=== PATIENT | male | born 1955 | race Caucasian/White ===

== ENCOUNTER 2019-11-25 08:02 | Outpatient (CLI) | payer MEDICARE, SELFPAY ==
[2019-11-25 09:40] LABS: Hemoglobin A1C 8.7 % (<5.7)
[2019-11-25 09:52] LABS: Creatinine Urine 86.3 mg/dL
[2019-11-25 09:57] LABS: MALB Creatinine Ratio 7.5 mg/g (0-30); Microalbumin Urine Random 6.5 mg/L (0-16.7)
== END 2019-11-25 08:03 | disposition home or self-care (01) ==
PROVIDERS: PCP Internal Medicine
DX: E78.5 Hyperlipidemia, unspecified (principal); E11.65 Type 2 diabetes mellitus with hyperglycemia
CPT/HCPCS: 36415; 82043; 83036

== ENCOUNTER 2019-11-26 07:39 | Outpatient (CLI) | payer MEDICARE, SELFPAY ==
[2019-11-26 09:18] LABS: Alanine Aminotransferase 39 U/L (4-50); Albumin Level 4.3 g/dL (3.5-5.1); Alkaline Phosphatase 61 U/L (38-126); Aspartate Amino Transferase 30 U/L (17-59); Bilirubin,Total 0.7 mg/dL (0.2-1.3); Blood Urea Nitrogen 15 mg/dL (9-20); Calcium 9.6 mg/dL (8.4-10.2); Carbon Dioxide 27 mmol/L (22-30); Chloride 103 mmol/L (98-107); Cholesterol 142 mg/dL (0-200); Estimated Glomerular Filt Rate > 60; Glucose 172 mg/dL (75-110); HDL Direct 45 mg/dL; Potassium 4.3 mmol/L (3.4-5.0); Sodium 137 mmol/L (137-145); Triglycerides 79 mg/dL (<150)
[2019-11-26 09:32] LABS: LDL Cholesterol Direct 71 mg/dL
== END 2019-11-26 07:40 | disposition home or self-care (01) ==
LOC: ANHLAB 07:42
PROVIDERS: PCP Internal Medicine; Visit Provider Internal Medicine Endocrinology, Diabetes & Metabolism
DX: E11.65 Type 2 diabetes mellitus with hyperglycemia (principal); E78.5 Hyperlipidemia, unspecified
CPT/HCPCS: 36415; 80053; 80061

== ENCOUNTER 2021-04-12 08:52 | Outpatient (CLI) | payer MEDICARE, SELFPAY ==
--- NOTE | 2021-04-12 11:00 | NEURO_ITS ---
Impression: # Complains of numbness of hands. # Bilateral Carpal Tunnel Syndrome, right more than left. 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 # Abnormal needle/EMG exam. Nerve Conduction Studies Anti Sensory Summary Table Stim Site NR Peak (ms) P-T Amp (?V) Site1 Site2 Delta-P (ms) Dist (cm) Damon (m/s) Left Median Anti Sensory (2-3nd Digit) Wrist 4.2 16.7 Wrist 2-3nd Digit 4.2 14.0 33 Wrist 4.3 9.1 Wrist 2-3nd Digit 4.2 14.0 33 Right Median Anti Sensory (2-3nd Digit) Wrist 5.3 7.9 Wrist 2-3nd Digit 5.3 14.0 26 Wrist 5.8 15.9 Wrist 2-3nd Digit 5.3 14.0 26 Left Radial Anti Sensory (Base 1st Digit) Wrist 2.4 5.5 Wrist Base 1st Digit 2.4 0.0 Right Radial Anti Sensory (Base 1st Digit) Wrist 2.9 26.5 Wrist Base 1st Digit 2.9 0.0 Left Ulnar Anti Sensory (5th Digit) Wrist 2.9 12.2 Wrist 5th Digit 2.9 14.0 48 Right Ulnar Anti Sensory (5th Digit) Wrist 3.2 9.7 Wrist 5th Digit 3.2 14.0 44 Motor Summary Table Stim Site NR Onset (ms) O-P Amp (mV) Site1 Site2 Delta-0 (ms) Dist (cm) Damon (m/s) Left Median Motor (Abd Poll Brev) Wrist 4.3 4.8 Elbow Wrist 5.2 29.0 56 Elbow 9.5 4.2 Right Median Motor (Abd Poll Brev) Wrist 5.1 4.4 Elbow Wrist 5.6 29.0 52 Elbow 10.7 3.9 Left Ulnar Motor (Abd Dig Minimi) Wrist 3.1 2.3 A Elbow Wrist 6.4 32.0 50 A Elbow 9.5 1.5 B Elbow Wrist 5.3 27.0 51 B Elbow 8.4 1.9 Right Ulnar Motor (Abd Dig Minimi) Wrist 2.9 3.6 A Elbow Wrist 7.0 29.0 41 A Elbow 9.9 2.6 B Elbow Wrist 4.8 22.0 46 B Elbow 7.7 3.0 F Wave Studies NR F-Lat (ms) L-R F-Lat (ms) Left Median (Mrkrs) (Abd Poll Brev) 33.44 0.88 Right Median (Mrkrs) (Abd Poll Brev) 34.32 0.88 Left Ulnar (Mrkrs) (Abd Dig Min) 30.04 4.06 Right Ulnar (Mrkrs) (Abd Dig Min) 34.10 4.06 EMG Side Muscle Nerve Root Ins Act Fibs Amp Dur Recrt Comment Right 1stDorInt Ulnar C8-T1 Nml Nml Incr >12ms Reduced Right Ext Indicis Radial (Post Int) C7-8 Nml Nml Nml Nml Nml Right Ext Digitorum Radial (Post Int) C7-8 Nml Nml Nml Nml Nml Right BrachioRad Radial C5-6 Nml Nml Nml Nml Nml Right PronatorTeres Median C6-7 Nml Nml Nml Nml Nml Right Abd Poll Brev Median C8-T1 Nml Nml Incr >12ms Reduced Left 1stDorInt Ulnar C8-T1 Nml Nml Nml Nml Nml Left Ext Indicis Radial (Post Int) C7-8 Nml Nml Nml Nml Nml Left Ext Digitorum Radial (Post Int) C7-8 Nml Nml Nml Nml Nml Left BrachioRad Radial C5-6 Nml Nml Nml Nml Nml Left PronatorTeres Median C6-7 Nml Nml Nml Nml Nml Left Abd Poll Brev Median C8-T1 Nml Nml Nml Nml Nml Right ABD Dig Min Ulnar C8-T1 Nml Nml Incr >12ms Reduced Left ABD Dig Min Ulnar C8-T1 Nml Nml Incr >12ms Reduced MTDD
== END 2021-04-12 08:53 | disposition home or self-care (01) ==
PROVIDERS: PCP Internal Medicine; Visit Provider Psychiatry & Neurology Neurology
DX: G56.03 Carpal tunnel syndrome, bilateral upper limbs (principal); G56.21 Lesion of ulnar nerve, right upper limb
CPT/HCPCS: 95886; 95911

== ENCOUNTER 2022-02-08 01:33 | Day surgery (SDC) | payer MEDICARE, SELFPAY ==
[2022-01-28 14:03] VITALS: BMI 31.4
[2022-02-08 08:30] VITALS: BP 165/80; PULSE 83; RESP 18; TEMP 36.2; O2SAT 98; BMI 33.6
[2022-02-08 08:37] LABS: Glucose Point of Care 79 mg/dl (65-105)
[2022-02-08] MEDS: LACTATED RINGERS 1,000 ML 150 ML IV CONT (08:45)
--- NOTE | 2022-02-08 08:54 | WPDANESEPPF ---
Anes - Initial Pre Proc Eval Procedure: Operation Date: 02/08/22 09:30 Proposed Procedures p Screening Colonoscopy - Lucio Henriquez MD Date/Time: 02/08/22 08:54 Surgeon: Lucio Henriquez MD Pre Op Diagnosis: hx of colon polyps Patient Data Age: 66 Gender: M Height: 1.8 m Weight: 109.3 kg Last Vital Signs Temp 97.1 F L 02/08/22 08:30 Pulse 83 02/08/22 08:30 Resp 18 02/08/22 08:30 BP 165/80 H 02/08/22 08:30 Pulse Ox 98 02/08/22 08:30 O2 Del Method Room Air 02/08/22 08:30 Allergies Allergy/AdvReac Type Severity Reaction Status Date / Time No Known Allergies Allergy Verified 01/28/22 14:00 Home Medications Medication Instructions Recorded Confirmed Type carbidopa 25 mg-levodopa 100 mg See Rx Instructions .Route 03/12/21 01/28/22 Rx tablet .COMPLEX #90 tabs atorvastatin 20 mg tablet 20 mg PO DAILY 01/28/22 01/28/22 History exenatide microspheres 2 mg/0.85 mg subcut 01/28/22 History mL subcutaneous auto-injector (Bydureon BCise) indapamide 1.25 mg tablet 1.25 mg PO DAILY 01/28/22 01/28/22 History insulin aspart U-100 100 unit/mL subcut 01/28/22 History (3 mL) subcutaneous pen (Novolog Flexpen U-100 Insulin aspart) insulin degludec 200 unit/mL (3 unit subcut 01/28/22 01/28/22 History mL) subcutaneous pen (Tresiba FlexTouch U-200 insulin) lisinopril 20 mg tablet 20 mg PO DAILY 01/28/22 01/28/22 History Laboratory Tests 02/08/22 08:31 POC Capillary Glucose 79 mg/dl mg/dl (65-105) Patient hx anesthesia problems: none Family hx anesthesia problems: none Results Review: All pre-operative results and documents have been reviewed as part of the pre-operative evaluation. [facility] Past Medical History Medical History (Updated 02/13/21 @ 11:20 by Ratna Bryson MA) Nerve disease, peripheral Social History Social History Smoking status: Former smoker Tobacco type: cigars Alcohol intake: former Alcohol use details: FORMER 1 DRINK PER WEEK Substance use: never Substance use type: does not use Living arrangements: alone Spiritual care concerns: No Anes - Eval Final PreProcedure Day of Procedure 02/08/22 08:54 Patient weight: obese Airway: Mallampati scale class II ASA classification: III Anesthesia type and monitoring: general GIVS and standard monitoring Results Review: All pre-operative results and documents have been reviewed as part of the pre-operative evaluation. Informed Consent: The patient's anesthetic plan and its attendant risks and benefits were discussed with the patient/family/POA. Questions were solicited and answers provided to the satisfaction of the patient/family/POA.
--- NOTE | 2022-02-08 09:06 | PM.HPGS ---
History of Present Illness History of Present Illness Consent: Risks, benefits, and alternatives have been discussed and questions answered. Patient agrees to proceed with procedure. Chief complaint: hx of colon polyps Narrative: David Felix is a 66 year old male with colon polyps about 8 years ago. Review of Systems Constitutional: Constitutional: Denies headache(s) and Denies weakness Eyes: Eyes: Denies blurry vision ENT: Reports Normal hearing present, Denies headache(s) and Denies neck pain Cardiovascular: Cardiovascular: Denies chest pain and Denies dyspnea Respiratory: Respiratory: Denies dyspnea Gastrointestinal: Gastrointestinal: Reports no additional gastrointestinal complaints Genitourinary: Genitourinary: Denies dysuria Musculoskeletal: Musculoskeletal: Denies neck pain Integumentary/Breasts: Skin/Breast: Denies dry skin Neurologic: Reports Normal hearing present, Denies headache(s) and Denies weakness Psychiatric: Psychiatric: Denies anxiety Endocrine: Endocrine: Denies change in body appearance Hematologic/Lymphatic: Hematologic/Lymphatic: Denies easy bleeding Allergic/Immunologic: Allergic/Immunologic: Denies urticaria PMFSH Past Medical History Medical History (Updated 02/08/22 @ 09:07 by Lucio Henriquez MD) Colon polyp Nerve disease, peripheral Social History Social History Smoking status: Former smoker Tobacco type: cigars Alcohol intake: former Alcohol use details: FORMER 1 DRINK PER WEEK Substance use: never Substance use type: does not use Living arrangements: alone Spiritual care concerns: No Meds Home Medications and Allergies Home Medications Medication Instructions Recorded Confirmed Type carbidopa 25 mg-levodopa 100 mg See Rx Instructions .Route 03/12/21 01/28/22 Rx tablet .COMPLEX #90 tabs atorvastatin 20 mg tablet 20 mg PO DAILY 01/28/22 01/28/22 History exenatide microspheres 2 mg/0.85 mg subcut 01/28/22 History mL subcutaneous auto-injector (Bydureon BCise) indapamide 1.25 mg tablet 1.25 mg PO DAILY 01/28/22 01/28/22 History insulin aspart U-100 100 unit/mL subcut 01/28/22 History (3 mL) subcutaneous pen (Novolog Flexpen U-100 Insulin aspart) insulin degludec 200 unit/mL (3 unit subcut 01/28/22 01/28/22 History mL) subcutaneous pen (Tresiba FlexTouch U-200 insulin) lisinopril 20 mg tablet 20 mg PO DAILY 01/28/22 01/28/22 History Allergies Allergy/AdvReac Type Severity Reaction Status Date / Time No Known Allergies Allergy Verified 01/28/22 14:00 Vital Signs Vital Signs - 24 hr 02/08/22 08:30 Temperature 97.1 F L Pulse Rate 83 Respiratory Rate 18 Blood Pressure 165/80 H Pulse Oximetry 98 Oxygen Delivery Room Air Exam Const: General: comfortable and no acute distress HENMT: General nose exam: Normal nares present Eyes: General: appearance normal, both eyes and all related structures Neck: Neck: no JVD Resp: Auscultation: clear to auscultation bilaterally Cardio: Rate: regular rate Rhythm: regular rhythm GI: Inspection: non-distended GI Palp: Yes Soft to palpation Skin: General skin exam: normal color Neuro: General: gait normal Speech: normal speech Extrem: General: normal to inspection Psych: Mental Status: mental status grossly normal Assessment and Plan Assessment and plan (1) Colon polyp: Code(s): K63.5 - Polyp of colon Status: Acute Assessment and Plan: colonoscopy
[2022-02-08 09:34] VITALS: BP 126/76; PULSE 77; RESP 17; O2SAT 97
[2022-02-08 09:40] LABS: Glucose Point of Care 81 mg/dl (65-105)
[2022-02-08 09:44] VITALS: BP 134/80; PULSE 79; RESP 19; O2SAT 97
[2022-02-08 09:54] VITALS: BP 141/97; PULSE 75; RESP 16; O2SAT 97
== END 2022-02-08 10:07 | disposition home or self-care (01) ==
PROVIDERS: PCP Internal Medicine; Visit Provider Internal Medicine Gastroenterology
PROC: 0DJD8ZZ Inspection of Lower Intestinal Tract, Via Natural or Artificial Opening Endoscopic (ICD-10-PCS; CPT 45378; principal; 2022-02-08 09:30)
DX: Z12.11 Encounter for screening for malignant neoplasm of colon (principal); D12.3 Benign neoplasm of transverse colon; K64.8 Other hemorrhoids; Z79.4 Long term (current) use of insulin; Z79.899 Other long term (current) drug therapy
CPT/HCPCS: 45385; 82948; 88305; J2704; J7120